=== PATIENT | male | born 1980 | race Caucasian/White ===

== ENCOUNTER 2019-05-23 20:36 | Emergency (ER) | payer OTHER ==
[~2019-05-23] VITALS: Ht 177.8 cm; Wt 88.6 kg
[2019-05-23 20:53] VITALS: Ht 177.8 cm; Wt 88.6 kg
[2019-05-23] MEDS ORDERED: NEURONTIN600 MG PO (20:55)
[2019-05-23] MEDS ORDERED: CELEXA20 MG PO (20:55)
[2019-05-23] MEDS ORDERED: BUSPAR 15 MG TA15 MG PO (20:55)
[2019-05-23] MEDS ORDERED: KLONOPIN1 MG PO (20:56)
[2019-05-23 21:47] LABS: BASOPHILS 0.5 % (0-2); EOSINOPHILS 2.1 % (0-7); HEMATOCRIT 38.8 % (42.0-54.0); HEMOGLOBIN 13.3 g/dL (13.5-17.5); IMMATURE GRANULOCYTES 0.1 % (0-5); LYMPHOCYTES 36.4 % (15-50); MCH 28.3 pg (26.0-34.0); MCHC 34.3 g/dL (31.0-37.0); MCV 82.6 fL (80.0-100.0); MEAN PLATELET VOLUME 9.2 fL (7.4-10.4); MONOCYTES 5.1 % (2-11); NEUTROPHILS 55.8 % (40-80); PLATELET COUNT 194 10x3/uL (130-400); RDW 14.2 % (11.5-14.5); WBC 7.7 10x3/uL (4.8-10.8)
[2019-05-23 21:51] LABS: APTT 27.9 SECONDS (22.8-39.4); INR 0.97 (0.85-1.17); PROTIME 12.4 SECONDS (11.6-15.0)
[2019-05-23 21:58] LABS: APPEARANCE CLEAR (CLEAR); BILIRUBIN NEGATIVE (NEGATIVE); COLOR YELLOW (YELLOW); GLUCOSE NEGATIVE (NEGATIVE); KETONE NEGATIVE (NEGATIVE); NITRITE NEGATIVE (NEGATIVE); PROTEIN NEGATIVE (NEGATIVE); SPECIFIC GRAVITY 1.025 (1.005-1.020); UROBILINOGEN NORMAL (NORMAL)
[2019-05-23 22:00] LABS: UDS - AMPHET NEGATIVE QUAL (NEGATIVE); UDS - BARB NEGATIVE QUAL (NEGATIVE); UDS - BENZO POSITIVE QUAL (NEGATIVE); UDS - COCAINE NEGATIVE QUAL (NEGATIVE); UDS - OPIATE NEGATIVE QUAL (NEGATIVE); UDS - PCP NEGATIVE QUAL (NEGATIVE); UDS - THC POSITIVE QUAL (NEGATIVE)
[2019-05-23 22:01] LABS: ALBUMIN 3.8 g/dL (3.4-5.0); ALKALINE PHOSPHATASE 66 U/L (46-116); ALT (SGPT) 45 U/L (10-68); BILIRUBIN - TOTAL 0.23 mg/dL (0.2-1.3); CALC OSMOLALITY 291 mosm/kg (275-300); CARBON DIOXIDE 23.9 mmol/L (21.0-32.0); CHLORIDE - SERUM 109 mmol/L (98-107); GLUCOSE 134 mg/dL (74-106); POTASSIUM - SERUM 3.6 mmol/L (3.5-5.1); PROTEIN - SERUM 6.7 g/dL (6.4-8.2); SODIUM 145 mmol/L (136-145); UREA NITROGEN 15 mg/dL (7-18); eGFR NON AFRICAN AMERICAN 90 mL/min (90-120)
[2019-05-23] MEDS ORDERED: TORADOL10 MG PO (22:11)
[2019-05-23 22:16] LABS: CKMB 2.1 U/L (0.0-3.6); CREATINE KINASE 100 UL (21-232); MAGNESIUM - SERUM 1.6 mg/dL (1.8-2.4); THYROID STIMULATING HORMONE 0.42 uIU/mL (0.36-3.74)
[2019-05-23 22:18] LABS: TROPONIN-I < 0.017 ng/mL (0.000-0.060)
[2019-05-23 22:41] VITALS: BP 112/71
== END 2019-05-23 22:41 | disposition home or self-care (01) ==
LOC: D.ER 20:36 → EDBD 20:36 → D.ER 22:41
PROVIDERS: Family Medicine
DX: R51 Headache (principal); M25.551 Pain in right hip

== ENCOUNTER 2019-05-23 22:57 | Emergency (ER) | payer OTHER ==
[~2019-05-23] VITALS: Ht 177.8 cm; Wt 72.7 kg
[~2019-05-23 22:57] MED LIST: BUSPAR 15 MG TA15 MG PO; CELEXA20 MG PO; KLONOPIN1 MG PO; NEURONTIN600 MG PO; TORADOL10 MG PO
[2019-05-23 23:02] VITALS: BP 126/74; Ht 177.8 cm; Wt 72.7 kg
== END 2019-05-23 23:53 | disposition home or self-care (01) ==
LOC: D.ER 22:57
DX: R51 Headache (principal); M79.18 Myalgia, other site

== ENCOUNTER 2019-05-24 00:08 | Emergency (ER) | payer OTHER ==
[~2019-05-24] VITALS: Ht 177.8 cm; Wt 72.7 kg
[2019-05-24 00:39] VITALS: BP 125/67; Ht 177.8 cm; Wt 72.7 kg
== END 2019-05-24 00:53 | disposition left against medical advice (07) ==
LOC: D.ER 00:08
DX: R51 Headache (principal)

== ENCOUNTER 2019-05-24 02:37 | Emergency (ER) | payer OTHER ==
[~2019-05-24] VITALS: Ht 177.8 cm; Wt 85.7 kg
[2019-05-24 02:46] VITALS: BP 113/80; Ht 177.8 cm; Wt 85.7 kg
== END 2019-05-24 04:02 | disposition home or self-care (01) ==
LOC: D.ER 02:37
DX: M25.552 Pain in left hip (principal)